=== PATIENT | male | born 1970 | race Caucasian/White ===

== ENCOUNTER 2018-06-11 08:17 | Observation (INO) | payer MEDICAID ==
[~2018-06-11] VITALS: Ht 170.2 cm; Wt 65.0 kg
[~2018-06-11 08:17] MED LIST: ALTEPLASE 100 MG INJ ONE
[2018-06-11 08:20] VITALS: Ht 170.2 cm; Wt 65.0 kg
[2018-06-11] MEDS ORDERED: IODIXANOL LOCM 100 ML BTL ONE (08:42)
[2018-06-11] MEDS ORDERED: SOD CHLORIDE 0.9% 100 ML ONE (08:42)
[2018-06-11] MEDS ORDERED: ASPIRIN 325 MG TAB PO ONE (09:00)
--- NOTE | 2018-06-11 09:17 | ERD ---
ER Documentation Chief Complaint Chief Complaint BIB RA 39 LEFT SIDED FACIAL DROOP AND LEFT SIDE WEAKNESS SINCE 7AM HPI 48-year-old male presents by paramedics for evaluation of left-sided facial and left sided body weakness. Patient was in his normal state of health until his last known well time, 7 AM this morning. At that time, patient had the acute onset of difficulty speaking, left-sided facial droop, left upper extremity weakness. He had no associated headache or seizure activity. The paramedics were then called. I have reviewed the pugger helper pre-hospital care. Pre-hospital vital signs were reviewed. Pre-hospital diagnostic tests were reviewed. Parts Manager assessment indicated an acute stroke with a positive mLAPSS screen. Upon arrival, patient has had complete resolution of symptoms with no further weakness, headache, difficulty speaking. ROS All systems reviewed and are negative except as per history of present illness. PMhx/Soc History of Surgery: No Anesthesia Reaction: No Hx Neurological Disorder: No Hx Respiratory Disorders: No Hx Cardiac Disorders: No Hx Psychiatric Problems: No Hx Miscellaneous Medical Probl: Yes Hx Alcohol Use: No Hx Substance Use: No Hx Tobacco Use: No Smoking Status: Never smoker FmHx Noncontributory for chief complaint Physical Exam Vitals Vital Signs Date Temp Pulse Resp B/P (MAP) Pulse Ox O2 O2 Flow FiO2 Time Delivery Rate 06/11/18 Nasal 08:27 Cannula 06/11/18 Nasal 08:25 Cannula 06/11/18 95 16 153/100 99 08:20 (117) 06/11/18 98.6 109 20 159/121 100 08:18 (134) Physical Exam GENERAL: The patient is well developed and appropriate for usual state of health in no apparent distress HEENT: Pupils equal, round, and reactive to light. EOMI. There is no scleral icterus. NECK: C-spine is soft and supple, there is no meningismus. There is no cervical lymphadenopathy. LUNGS: Clear to auscultation bilaterally. There are no rales, wheezes or rhonchi. HEART: Regular rate and rhythm, no murmurs, clicks, rubs or gallops. ABDOMEN: Soft, non-tender, non-distended. There are bowel sounds in all four quadrants. No rebound or guarding. EXTREMITIES: There is no peripheral cyanosis or edema. No focal swelling or erythema. NEURO: The patient moves all four extremities with 5/5 strength. Cranial nerves II - XII are intact. Normal gait. Alert and oriented. No visual field deficit, no visual acuity deficit, normal speech and balance. Normal finger to nose. SKIN: There is no apparent rash or petechiae. HEME/LYMPHATIC: There is no evidence of excessive bruising or lymphedema. PSYCHIATRIC: The patient does not appear anxious or depressed. Result Diagram: 06/11/18 0823 06/11/18 0823 Results 24 hrs Laboratory Tests Test 06/11/18 08:23 06/11/18 08:32 White Blood Count 10.6 10^3/ul Red Blood Count 5.04 10^6/ul Hemoglobin 15.0 g/dl Hematocrit 45.2 % Mean Corpuscular Volume 89.7 fl Mean Corpuscular Hemoglobin 29.8 pg Mean Corpuscular Hemoglobin Concent 33.2 g/dl Red Cell Distribution Width 13.1 % Platelet Count 366 10^3/UL Mean Platelet Volume 10.3 fl Immature Granulocytes % 0.300 % Neutrophils % 47.1 % Lymphocytes % 43.4 % Monocytes % 6.8 % Eosinophils % 2.0 % Basophils % 0.4 % Nucleated Red Blood Cells % 0.0 /100WBC Immature Granulocytes # 0.030 10^3/ul Neutrophils # 5.0 10^3/ul Lymphocytes # 4.6 10^3/ul Monocytes # 0.7 10^3/ul Eosinophils # 0.2 10^3/ul Basophils # 0.0 10^3/ul Nucleated Red Blood Cells # 0.0 10^3/ul Prothrombin Time 11.5 Sec Prothrombin Time Ratio 0.9 INR International Normalized Ratio 0.83 Activated Partial Thromboplast Time 22.6 Sec Sodium Level 141 mmol/L Potassium Level 3.9 mmol/L Chloride Level 103 mmol/L Carbon Dioxide Level 27 mmol/L Anion Gap 11 Blood Urea Nitrogen 15 mg/dl Creatinine 1.20 mg/dl Est Glomerular Filtrat Rate mL/min > 60 mL/min Glucose Level 202 mg/dl Hemoglobin A1c 7.1 % Calcium Level 9.8 mg/dl Creatine Kinase 45 IU/L Creatine Kinase Index 1.3 Creatinine Kinase MB (Mass) 0.60 ng/ml Troponin I < 0.012 ng/ml Triglycerides Level 214 mg/dl Cholesterol Level 215 mg/dl LDL Cholesterol, Calculated 133 mg/dl HDL Cholesterol 39 mg/dl Cholesterol/HDL Ratio 5.5 RATIO Ethyl Alcohol Level < 10.0 mg/dl Bedside Glucose 164 mg/dL Current Medications Medications Dose Sig/Yenifer Start Time Status Last (Trade) Ordered Route PRN Stop Time Admin Dose Reason Admin Aspirin 325 mg ONCE ONCE 06/11/18 DC 06/11/18 (Aspirin) PO 09:00 08:59 06/11/18 09:01 Procedures/MDM Patient was taken to a room, seen and evaluated. Comfort measures were initiated. A stroke workup was initiated. Code stroke was not called as he had complete resolution of symptoms with an NIHSS of 0 Diagnostic tests were ordered and reviewed. 3 LEAD RHYTHM STRIP: Normal sinus rhythm without ectopy EK lead EKG reviewed by myself: Normal Sinus Rhythm Normal [place] and intervals No ST elevation, depression, or T wave inversion Impression: Normal EKG RADIOLOGY: Reviewed with the radiologist CONSULTATION: Hospitalist was notified for admission REEVALUATION: Patient has remained asymptomatic with a normal neurologic evaluation MEDICAL DECISION MAKING: Patient presents with acute neurologic changes concerning for a stroke/TIA. Patient has significant ischemic risk factors and presents with what appears to be a TIA. Given his high risk TIA, he will require admission to the hospital for observation and further workup. Critical care time:> 35 minutes Critical care has included ongoing critical monitoring of neurologic as well as hemodynamic status. Multiple consultations including: Code stroke: deferred for resolution of symptoms Tele neurology: NA Radiology: appreciated TPA: Not a candidate as patient has had complete resolution of symptoms Intravascular decision making: Not a candidate as patient has had complete resolution of symptoms. Departure Diagnosis: Primary Impression: TIA (transient ischemic attack) Condition: FE Draper Jun 11, 2018 09:16
[2018-06-11] MEDS ORDERED: MTF1000T PO (09:24)
[2018-06-11] MEDS ORDERED: LISI-471 PO (09:26)
[2018-06-11] MEDS ORDERED: AMLO-145 PO (09:26)
[2018-06-11] MEDS ORDERED: HYDR12.58 PO (09:26)
[2018-06-11] MEDS ORDERED: ASPI-817 PO (09:26)
[2018-06-11] MEDS ORDERED: LABETALOL HCL 20MG INJ ONE (12:26)
--- NOTE | 2018-06-11 13:23 | HP ---
Date/Time of Note Date/Time of Note DATE: 06/11/18 TIME: 13:14 Assessment/Plan VTE Prophylaxis SCD applied (from Nsg): Yes Pharmacological prophylaxis: LMWH Lines/Catheters IV Catheter Type (from Nrsg): Saline Lock Assessment/Plan Hospital Course SUBJECTIVE: Seen and evaluated patient in ER room 16 at 12 PM. Patient with left-sided facial droop, slurring speech and left upper and lower extremity weakness. OBJECTIVE: Vital signs-see below PHYSICAL EXAM: Constitutional: Well-developed, adequately built, lying in bed comfortably. Psych: nl mood/affect, no complaints Head: atraumatic, normocephalic Eyes: nl conjunctiva, nl sclera ENMT: mucosa pink and moist, nl external ears & nose Neck: non-tender, supple Respiratory: clear to auscultation, normal air movement Cardiovascular: nl pulses, regular rate and rhythm Gastrointestinal: non-tender, soft, bowel sounds active in all 4 quadrants. Musculoskeletal/extremities: nl extremities to inspection, motor strength equal bilaterally, no focal deficit. Normal pulses,no cyanosis, no edema. Neurological:+Left facial droop/Slurry speech,LUE 4/5,LLE 4/5. Right UE 5/5,RLE 5/5. Alert oriented 3. Skin: nl turgor ASSESSMENT/PLAN: 48-year-old male with htn,dm2,dyslipidemia here w/ sudden onset of left facial droop, slurred speech, left upper and lower extremity weakness started this morning at 7:00. 1. Left-sided weakness, Most likely acute right sided CVA. -Patient symptoms were resolved earlier per ED assessment. However, as I am assessing patient, he is starting to have symptoms again. -Call a code stroke and stroke protocol to be initiated. I spoke with code workers compensation coordinator. -Aspirin, high intensity statin permissive blood pressure up to 220/120 over the next 24 hours -Neurology consult -MRI/MRI brain, 2D echo with bubble study, CTA study to be repeated. -PT/OT/ST eval 2. Essential hypertension -At present, will allow permissive blood pressure up to 220/120 per guideline. 3. Dyslipidemia -Start patient on high intensity statin 4. Type 2 diabetes -A1c -Glycemic stabilization with Accu-Cheks/ISS/Lantus in-house. -Carb controlled diet when stable for p.o. DVT prophylaxis: Lovenox PUD prophylaxis: Pepcid CODE STATUS: Full code Diet: Once passed by speech therapy, patient can start carbohydrate controlled diet. Rest of the management depend on hospital course. Approximately 60 minutes was spent on this history and physical. Patient was seen in collaboration with Dr. Jara. Result Diagram: 06/11/18 0823 06/11/18 0823 Results 24hrs Laboratory Tests Test 06/11/18 08:23 06/11/18 08:32 White Blood Count 10.6 Red Blood Count 5.04 Hemoglobin 15.0 Hematocrit 45.2 Mean Corpuscular Volume 89.7 Mean Corpuscular Hemoglobin 29.8 Mean Corpuscular Hemoglobin Concent 33.2 Red Cell Distribution Width 13.1 Platelet Count 366 Mean Platelet Volume 10.3 Immature Granulocytes % 0.300 Neutrophils % 47.1 Lymphocytes % 43.4 Monocytes % 6.8 Eosinophils % 2.0 Basophils % 0.4 Nucleated Red Blood Cells % 0.0 Immature Granulocytes # 0.030 Neutrophils # 5.0 Lymphocytes # 4.6 H Monocytes # 0.7 Eosinophils # 0.2 Basophils # 0.0 Nucleated Red Blood Cells # 0.0 Prothrombin Time 11.5 L Prothrombin Time Ratio 0.9 INR International Normalized Ratio 0.83 Activated Partial Thromboplast Time 22.6 L Sodium Level 141 Potassium Level 3.9 Chloride Level 103 Carbon Dioxide Level 27 Anion Gap 11 Blood Urea Nitrogen 15 Creatinine 1.20 Est Glomerular Filtrat Rate mL/min > 60 Glucose Level 202 Hemoglobin A1c 7.1 H Calcium Level 9.8 Creatine Kinase 45 Creatine Kinase Index 1.3 Creatinine Kinase MB (Mass) 0.60 Troponin I < 0.012 Triglycerides Level 214 H Cholesterol Level 215 H LDL Cholesterol, Calculated 133 HDL Cholesterol 39 Cholesterol/HDL Ratio 5.5 Ethyl Alcohol Level < 10.0 H Bedside Glucose 164 HPI/ROS Admit Date/Time Admit Date/Time Hx of Present Illness This is a 48-year-old male with a past medical history hypertension, dyslipidemia, type 2 diabetes, presented to the emergency room with sudden onset of left facial droop, left upper and lower extremity weakness started this morning at 7:00. Patient denied chest pain, palpitation, shortness of breath, nausea, vomiting, diaphoresis, abdominal pain, loss of consciousness, dizziness, or other constitutional symptoms. He denied any fever, chills or other discomfort. On arrival, patient's labs unremarkable. Blood is negative for alcohol. Vital signs temperature 98.3, pulse rate 108, respiratory rate 20, blood pressure 154/131, oxygen saturation 98% on room air. A brain CT without contrast negative. CTA head and neck negative for any significant stenosis. Patient was given aspirin 325 mg in the emergency room. As per ER documentation, his symptoms were completely resolved as such, they have not called a code stroke or telemetry neuro was consulted. Patient was admitted for TIA workup. At my encounter with the patient, he continued to have left-sided facial droop with slurring speech, left upper extremity weakness with and with left upper and lower extremity weakness. Patient denied any vision changes, dizziness, headache, numbness, tingling or other discomfort. ROS A 12 point review of system was assessed and is negative other than what is mentioned in HPI PMH/Family/Social Past Medical History See HPI Coded Allergies: No Known Allergy (Unverified , 06/11/18) Past Surgical History Noncontributory Social History Denied history of alcohol, smoking or illicit drug use. Smoking Status: Never smoker Exam/Review of Systems Vital Signs Vitals Vital Signs Date Temp Pulse Resp B/P (MAP) Pulse Ox O2 O2 Flow FiO2 Time Delivery Rate 06/11/18 98.3 113 20 143/98 98 Room Air 11:26 (113) NATHAN SMITH NP Jun 11, 2018 13:23
--- NOTE | 2018-06-11 13:40 | DS ---
Date/Time of Note Date/Time of Note DATE: 06/11/18 TIME: 13:32 Discharge Summary Admission/Discharge Info Admit Date/Time Discharge Date/Time Discharge Diagnosis Acute stroke Type 2 diabetes Hypertension Dyslipidemia Patient Condition: Stable Hx of Present Illness This is a 48-year-old male with a past medical history hypertension, d yslipidemia, type 2 diabetes, presented to the emergency room with sudden onset of left facial droop, left upper and lower extremity weakness started this morning at 7:00. Patient denied chest pain, palpitation, shortness of breath, nausea, vomiting, diaphoresis, abdominal pain, loss of consciousness, dizziness, or other constitutional symptoms. He denied any fever, chills or other discomfort. On arrival, patient's labs unremarkable. Blood is negative for alcohol. Vital signs temperature 98.3, pulse rate 108, respiratory rate 20, blood pressure 154/131, oxygen saturation 98% on room air. A brain CT without contrast negative. CTA head and neck negative for any significant stenosis. Patient was given aspirin 325 mg in the emergency room. As per ER doc umentation, his symptoms were completely resolved as such, they have not called a code stroke or telemetry neuro was consulted. Patient was admitted for TIA workup. At my encounter with the patient, he continued to have left-sided facial droop with slurring speech, left upper extremity weakness with and with left upper and lower extremity weakness. Patient denied any vision changes, dizziness, headache, numbness, tingling or other discomfort. Hospital Course This is a 48-year-old male with a history of hypertension, diabetes, dyslipidemia, presented with sudden onset of left facial droop, slurred speech, left-sided weakness started this morning at 7:00. Apparently, in ER, patient's symptoms were completely resolved per ED documentation and a clinical decision was made to admit for TIA. Patient's initial CT, CT angiography head and neck were unremarkable. Apparently, as I was examining patient for admission around 12:00, patient found to have worsening left facial droop, slurring speech with mild weakness on left upper and lower extremity 4 out of 5. At this point, I had called a code stroke and spoke w/Hilary the marketing program coordinator. Patient received TPA. Patient will be transferred to [facility] for further care. At time of dictation of discharge summary, repeat CTA, MRI/MRA brain studies are pending.No LVO per re[port.No hemorrhage. Case discussed with Dr. Jara. Home Meds Reported Medications Hydrochlorothiazide* (Hydrochlorothiazide*) 12.5 Mg Tablet, 12.5 MG PO DAILY, #30 TAB 06/11/18 Aspirin* (Aspirin* EC) 81 Mg Tablet.dr, 81 MG PO DAILY, TAB 06/11/18 Amlodipine Besylate* (Amlodipine Besylate*) 5 Mg Tablet, 5 MG PO DAILY, #30 TAB 06/11/18 Lisinopril* (Lisinopril*) 20 Mg Tablet, 20 MG PO DAILY, #30 TAB 06/11/18 Metformin* (Glucophage*) 1,000 Mg Tablet, 1000 MG PO BID, #60 TAB 06/11/18 Primary Care Provider Care Physician No Primary Pending Labs Laboratory Tests Test 06/11/18 08:23 06/11/18 08:32 White Blood Count 10.6 10^3/ul (4.8-10.8) Red Blood Count 5.04 10^6/ul (4.70-6.10) Hemoglobin 15.0 g/dl (14.0-18.0) Hematocrit 45.2 % (42.0-52.0) Mean Corpuscular Volume 89.7 fl (82.0-101.0) Mean Corpuscular Hemoglobin 29.8 pg (29.0-33.0) Mean Corpuscular 33.2 g/dl (32.0-37.0) Hemoglobin Concent Red Cell Distribution Width 13.1 % (11.5-14.5) Platelet Count 366 10^3/UL (140-415) Mean Platelet Volume 10.3 fl (7.4-10.4) Immature Granulocytes % 0.300 % (0.001-0.429) Neutrophils % 47.1 % (39.0-77.0) Lymphocytes % 43.4 % (15.0-51.0) Monocytes % 6.8 % (0.0-11.0) Eosinophils % 2.0 % (0.0-7.0) Basophils % 0.4 % (0.0-2.0) Nucleated Red Blood Cells % 0.0 /100WBC (0.0-0.0) Immature Granulocytes # 0.030 10^3/ul (0.0-0.031) Neutrophils # 5.0 10^3/ul (1.6-7.5) Lymphocytes # 4.6 10^3/ul (0.8-2.9) Monocytes # 0.7 10^3/ul (0.3-0.9) Eosinophils # 0.2 10^3/ul (0.0-0.5) Basophils # 0.0 10^3/ul (0.0-0.1) Nucleated Red Blood Cells # 0.0 10^3/ul (0.0-0.0) Prothrombin Time 11.5 Sec (11.9-14.9) Prothrombin Time Ratio 0.9 INR International 0.83 Normalized Ratio Activated Partial Thromboplast 22.6 Sec (23.0-35.0) Time Sodium Level 141 mmol/L (135-144) Potassium Level 3.9 mmol/L (3.5-5.1) Chloride Level 103 mmol/L (97-110) Carbon Dioxide Level 27 mmol/L (21-31) Anion Gap 11 (5-13) Blood Urea Nitrogen 15 mg/dl (7-20) Creatinine 1.20 mg/dl (0.61-1.24) Est Glomerular Filtrat > 60 mL/min (>60) Rate mL/min Glucose Level 202 mg/dl (70-220) Hemoglobin A1c 7.1 % (0-5.9) Calcium Level 9.8 mg/dl (8.4-10.2) Creatine Kinase 45 IU/L (23-200) Creatine Kinase Index 1.3 Creatinine Kinase MB (Mass) 0.60 ng/ml (0.0-2.4) Troponin I < 0.012 ng/ml (0.000-0.120) Triglycerides Level 214 mg/dl (0-149) Cholesterol Level 215 mg/dl (100-200) LDL Cholesterol, Calculated 133 mg/dl HDL Cholesterol 39 mg/dl (27-67) Cholesterol/HDL Ratio 5.5 RATIO Ethyl Alcohol Level < 10.0 mg/dl (0-0) Bedside Glucose 164 mg/dL (70-220) NATHAN SMITH NP Jun 11, 2018 13:40
--- NOTE | 2018-06-11 13:42 | CONS ---
DATE OF ADMISSION: 06/11/2018 DATE OF CONSULTATION: 06/11/2018 I was asked to see the patient for left-sided weakness. The patient is ____, hypertension. He was b rought into the emergency department after waking with left face and arm weakness this morning. The patient was seen and completely resolved in the emergency department roughly 45 minutes prior to cons ultation with then subsequent recurrence of facial weakness, dysarthria and left arm weakness. The zeb monique has no prior history of stroke, no history of intraparenchymal hemorrhage, no intracerebral he morrhage. The patient's blood pressure currently is 156/96. His pulse rate is 80 and normal sinus r hythm. The patient is afebrile and ____. The patient has a noncontrast head CT completed after his second deterioration, which was shown to have no acute changes. The patient has an NIH stroke scale completed which he scored in the assessment of 3, 2 for sensory disturbances and facial symmetry and 1 for drift in the left upper extremity. The total NIH stroke scale score of 4 after considerable di scussion utilizing an seismic interpreter with the patient. We then give the patient tPA with total dose of 75 mg with 10% given as a bolus over the first minute. I should be called if the patient experiences neurologic deterioration, bleeding or blood pressure out of range. We discussed the case with the zeb monique's emergency department physician. Previous ____ had determined that the patient had no large vessel occlusion. Dictated By: MARCIA IRAHETA CM/JOSE ALFREDO Conf#: [id number] DID#: [id number] CC: FE HINES;*[facility]*
[2018-06-11 14:00] VITALS: BP 145/103; PULSE 118; RESP 20
--- NOTE | 2018-06-11 16:21 | RADRPT ---
Echocardiogram Report Patient Name: ASHLEY MAYNARD Gender: Male Date: 1970 Study Date: 11-Jun-2018 Inspector Barrel: Madi Fuentes [facility] Location: [facility] Ref. Physician: NATHAN SMITH Quality: Adequate Procedures: Transthoracic echocardiogram with complete 2D, M-Mode, and doppler examination. Indications: Evaluate Left Ventricular function w/ bubble study. 2D/M Mode Doppler Measurement Value Normal Ranges Measurement Value Normal Ranges LVIDd 2D 3.6 3.5 - 5.6 cm AV Peak Eric 1.5 m/sec LVIDs 2D 2.2 2.1 - 4.1 cm AV Peak PG 9.0 mmHg LVPWd 2D 1.0 0.6 - 1.1 cm LVOT Peak Eric 1.1 m/sec IVSd 2D 1.4 0.6 - 1.1 cm LVOT Peak PG 5.0 mmHg AoR Diam 2D 3.0 2.0 - 3.7 cm MV E Peak Eric 0.8 m/sec LA/Ao 2D 1 0 - 1 MV A Peak Eric 0.8 m/sec LA Dimen 2D 3.5 2.3 - 4.0 cm MV E/A 1.1 MV Decel Time 130 msec Lat E` Eric 0.1 m/sec Lateral E/E` 5.7 Med E` Eric 0.1 m/sec MV E/A 1.1 TR Peak Eric 1.4 m/sec TR Peak PG 8.0 mmHg RVSP 16.0 mmHg Findings Left Ventricle: Normal left ventricular systolic function. Normal left ventricular cavity size. Sigmoid septum. Ejection fraction is visually estimated at 5560 %. Tissue Doppler/Mitral Doppler indices are consistent with impaired relaxation (Stage I diastolic dysfunction). Right Ventricle: Normal right ventricular size. Normal right ventricular systolic function. Left Atrium: The left atrium is normal in size. Right Atrium: The right atrium is normal in size. Atrial Septum: Bubble study was performed with and with out valsalva indicating no evidence of intra atrial shunt. Mitral Valve: Mild mitral leaflet calcification. Mild mitral annular calcification. Trace mitral regurgitation. Aortic Valve: No significant aortic stenosis or insufficiency. Aortic cusps appear mildly calcified. Trace aortic valve regurgitation. Tricuspid Valve: Normal appearance of the tricuspid valve. Estimated peak PA systolic pressure 16 mmHg. There is trace tricuspid regurgitation. Pericardium: Normal pericardium with no significant pericardial effusion. Aorta: Normal aortic root. IVC: Normal size and no respiratory collapse consistent with elevated right atrial pressure. Conclusions Normal left ventricular systolic function. Normal left ventricular cavity size. Sigmoid septum. Ejection fraction is visually estimated at 55-60 %. Tissue Doppler/Mitral Doppler indices are consistent with impaired relaxation (Stage I diastolic dysfunction). Mild mitral leaflet calcification. Mild mitral annular calcification. Trace mitral regurgitation. No significant aortic stenosis or insufficiency. Aortic cusps appear mildly calcified. Trace aortic valve regurgitation. Normal appearance of the tricuspid valve. Estimated peak PA systolic pressure 16 mmHg. There is trace tricuspid regurgitation. Electronically Signed By: Blas Guaman 11-Jun-2018 16:20:49 -0800 Patient Name: ASHLEY MAYNARD Study Date: 11-Jun-2018 [id number]
== END 2018-06-11 15:16 | disposition short-term general hospital (02) ==
LOC: E/R 08:17 → TEL 09:23 → CANBEDREQ 13:12 → E/R 15:19
PROVIDERS: ADMIT Family Medicine; ATTEND Family Medicine
DX: I63.9 Cerebral infarction, unspecified (principal); E11.9 Type 2 diabetes mellitus without complications; I10 Essential (primary) hypertension; E78.5 Hyperlipidemia, unspecified
CPT/HCPCS: 36415; 70450; 70496; 70498; 71045; 80048; 80061; 80307; 82550; 82553; 82962; 83036; 84484; 85025; 85610; 85730; 93005; 93306; J2997; Q9967; Z7500; Z7502; Z7610; G0378